=== PATIENT | male | born 1945 | race Caucasian/White ===

== ENCOUNTER → 2017-01-27 19:40 | Outpatient (CLI) | payer MEDICARE, BC | END | disposition home or self-care (01) | LOC: D.LABREF 19:40 | DX: N39.0 Urinary tract infection, site not specified (principal) ==

== ENCOUNTER 2017-03-31 06:08 | Day surgery (SDC) | payer MEDICARE, BC ==
[2017-03-30 12:09] LABS: HEMATOCRIT 34.8 % (42.0-54.0); HEMOGLOBIN 10.8 g/dL (13.5-17.5); MCH 24.9 pg (26.0-34.0); MCV 80.2 fL (80.0-100.0); MEAN PLATELET VOLUME 10.4 fL (7.4-10.4); PLATELET COUNT 92 10x3/uL (130-400); RBC 4.34 10x6/uL (4.20-6.10); RDW 17.6 % (11.5-14.5); WBC 5.9 10x3/uL (4.8-10.8)
[2017-03-30 12:25] LABS: CALCIUM 8.8 mg/dL (8.5-10.1); CREATININE - SERUM 1.7 mg/dL (0.6-1.3)
[2017-03-30 12:50] LABS: PLATELET ESTIMATE DECREASED
[~2017-03-31] VITALS: Ht 182.9 cm; Wt 97.5 kg
[~2017-03-31 06:08] MED LIST: ASPIRIN EC81 M1 PO; COZAAR50 MG PO; FERROUS SULFAT325 MG PO; JANUVIA25 MG PO; LIPITOR40 MG PO; METOPROLOL TAR100 M1 PO; NITROSTAT0.3 MG SL; PEPCID40 MG PO; STOOL SOFTENER100 M1 PO; VENTOLIN HFA18 GM INH; VITAMIN B-12500 MCG PO; VITAMIN D31000 UNIT PO
[2017-03-31 10:06] VITALS: BP 137/74; Ht 182.9 cm; Wt 97.5 kg
--- NOTE | 2017-03-31 13:35 | NUR ---
TURP NOT DONE, DR DEEMED NOT NECESSARY SEE DR'S DICTATION
--- NOTE | 2017-03-31 16:46 | OP ---
PATIENT NAME: RODRIGO BALL MEDICAL RECORD: [id number] :43 LOCATION:[facility] ADMISSION DATE: SURGEON: YASH FREDERICK MD DATE OF OPERATION: 03/31/2017 DATE OF SURGERY: 03/31/2017 SURGEON: Yash Frederick MD ANESTHESIA: General anesthesia. PREOPERATIVE DIAGNOSES: Chronic urinary retention, obstructive BPH, and diabetes mellitus type 2. POSTOPERATIVE DIAGNOSIS: Chronic urinary retention due to neurogenic bladder from diabetes mellitus type 2. FINDINGS: Well resected prostate with no outflow obstruction. No bladder tumors. Single ureteral orifices bilaterally. PROCEDURE: Cystoscopy. BLOOD LOSS: None. CLINICAL HISTORY: This is a 71-year-old male, who had a TURP in 2003. In 2012, he went into urinary retention. He saw Dr. Jani Cast of [facility]. Dr. Cast has the patient performing self-intermittent catheterization 4 times a day since that time. The patient wanted to know if there was a possibility that he could void again. He had in the meantime seen another urologist who inserted the bladder pacemaker, the InterStim and that did not work. I am not sure if the patient has any residual regrowth of his prostate and therefore, we are performing cystoscopy today. If I do see evidence of obstruction of the prostate on his cystoscopy then we have the machinery available today to perform a GreenLight laser transurethral resection of the prostate. In anticipation of this, he was given general anesthesia. He is allergic to sulfa and lisinopril. 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 DESCRIPTION OF PROCEDURE: The patient was given general anesthetic and then he was placed in the dorsal lithotomy position and prepped and draped. The laser resectoscope was introduced into the urethra using a normal saline irrigation and a 30-degree lens for visualization. Penile urethra shows no obstruction. Prostatic urethra shows a widely resected prostatic urethra with wide open bladder neck. There is no evidence of obstruction of the bladder outlet at all. The external urinary sphincter is still intact. Going into the bladder, the ureteral orifices are single on each side. No bladder tumors were seen. At this point, the bladder was fully emptied through the cystoscope and the procedure was terminated. FINAL DIAGNOSES: Neurogenic bladder due to diabetes mellitus type 2 causing chronic urinary retention. TRANSINT:[id number] Voice Confirmation ID: [id number] DOCUMENT ID: [id number] OPERATIVE REPORT [id number] RODRIGO BALL, YASH Pizarro MD at 1646 CC: [id number] DICTATION DATE: 03/31/17 1329 ROLL OPERATOR: 03/31/17 1510 [facility] 03/31/17 [place] [id number] [place] [id number]
== END 2017-03-31 15:20 | disposition home or self-care (01) ==
LOC: D.OPS 06:08 → D.PAN 11:45 → D.OPS 11:45 → D.PAN 12:10 → D.OPS 15:20
PROVIDERS: Anesthesiology
DX: E11.69 Type 2 diabetes mellitus with other specified complication (principal); N31.8 Other neuromuscular dysfunction of bladder; R33.8 Other retention of urine; N40.1 Benign prostatic hyperplasia with lower urinary tract symptoms; N13.8 Other obstructive and reflux uropathy; Z88.2 Allergy status to sulfonamides; Z88.8 Allergy status to other drugs, medicaments and biological substances